=== PATIENT | male | born 1990 | race African-American/Black ===

== ENCOUNTER → 2016-12-17 | Outpatient (CLI) | payer OTHER ==
--- NOTE | 2016-12-17 16:11 | XCELERA REPORT ---
[address] [address] Lower Extremity Venous Evaluation Name: ELIDA ODOM Age: 26 yrs Gender: Male : 1990 Patient Status: Outpatient Patient Location: Study Date: 12/17/2016 12:00 PM Procedure: Color flow and duplex imaging of the veins of the right lower extremity as well as the left Common Femoral vein. Reason For Study: RT CALF PAIN Ordering Physician: MARCIE TILLEY PA-C Performed By: Erika Mcnulty Right Sided Venous Evaluation Normal vessel filling wall to wall, compression and augmentation as well as Colour flow down to the infrageniculate veins. Left Sided Venous Evaluation The left common femoral vein is fully compressible. Spontaneous and phasic flow is present in the left common femoral vein. Interpretation Summary No duplex evidence of DVT or obstruction in the right lower extremity nor in the left Common Femoral vein. : MARCIE TILLEY PA-C > Jose Mac
== END ==
LOC: SP 11:56
PROVIDERS: ATTEND Physician Assistant
DX: M79.661 Pain in right lower leg (principal)
CPT/HCPCS: 93971

== ENCOUNTER → 2018-09-22 | Outpatient (CLI) | payer OTHER ==
[2018-09-22 12:05] LABS: ABSOLUTE EOSINOPHILS # (AUTO) 0.1 10^3/uL (0.0-0.6); ABSOLUTE LYMPHOCYTES (AUTO) 1.4 10^3/uL (0.5-4.7); ABSOLUTE MONOCYTES (AUTO) 0.5 10^3/uL (0.1-1.4); ABSOLUTE NEUT (AUTO) 2.9 10^3/uL (1.7-8.2); BASOPHILS % (AUTO) 0.4 % (0-2); EOSINOPHILS % (AUTO) 1.5 % (0-6); HEMATOCRIT 44.2 % (37.9-51.0); HEMOGLOBIN 14.5 g/dL (13.5-17.0); LYMPHOCYTES % (AUTO) 28.1 % (13-45); MEAN CORPUSCULAR HGB CONC 32.9 g/dL (32.0-36.0); MEAN CORPUSCULAR VOLUME 85 fl (80-97); MONOCYTES % (AUTO) 10.8 % (3-13); PLATELET COUNT 219 10^3/uL (150-450); RED CELL DISTRIBUTION WIDTH 13.4 % (11.5-14.0); SEGMENTED NEUTROPHILS % (AUTO) 59.2 % (42-78); TOTAL CELLS COUNTED % (AUTO) 100 %; WHITE BLOOD COUNT 4.9 10^3/uL (4.0-10.5)
[2018-09-22 12:53] LABS: ERYTHROCYTE SEDIMENTATION RATE 9 mm/hr (0-15)
== END ==
LOC: OD 10:55
PROVIDERS: ATTEND Physician Assistant
DX: M25.461 Effusion, right knee (principal)
CPT/HCPCS: 36415; 85025; 85652; 86140